=== PATIENT | female | born 2000 | race Caucasian/White ===

== ENCOUNTER → 2019-06-01 17:03 | Outpatient (CLI) | payer OTHER, MEDICAID, SELFPAY | PROVIDERS: Visit Provider Physician Assistant | DX: R10.11 Right upper quadrant pain (principal); R10.12 Left upper quadrant pain | CPT/HCPCS: 87086 ==

== ENCOUNTER → 2019-06-02 09:02 | Outpatient (CLI) | payer OTHER, MEDICAID, SELFPAY ==
[2019-06-02 09:37] LABS: Add Manual Diff / Slide Review NO; Basophils Absolute Auto 0 /uL (0-100); Basophils Percent Auto 0.3 % (0-2); Eosinophils Absolute Auto 100 /uL (0-450); Hemoglobin 13.8 g/dL (12.0-16.0); Lymphocytes Absolute Auto 2000 /uL (1100-4500); Lymphocytes Percent Auto 35.9 % (25-40); Mean Corpuscular HGB Conc 33.6 % (30-36); Mean Corpuscular Hemoglobin 29.5 PG (26-34); Monocytes Absolute Auto 400 /uL (0-900); Monocytes Percent Auto 6.8 % (3-14); Neutrophils Absolute Auto 3000 /uL (1500-7000); Platelet Count 219 X10^3/uL (150-400); Red Blood Cell Count 4.66 X10^6/uL (4.0-5.2); White Blood Cell Count 5.5 X10^3/uL (4.5-11.0)
[2019-06-02 10:50] LABS: Alanine Aminotransferase 25 IU/L (9-52); Albumin 4.5 g/dL (3.5-5.0); Albumin Globulin Ratio 1.6 (1.0-2.8); Alkaline Phosphatase 60 U/L (38-126); Aspartate Aminotransferase 30 IU/L (14-36); BUN Creatinine Ratio 12.2 (6-22); Bilirubin Total 1.6 mg/dL (0.2-1.3); Blood Urea Nitrogen 11 mg/dL (7-17); Calcium 10.7 mg/dL (8.4-10.2); Carbon Dioxide 27 mmol/L (22-32); Chloride 103 mmol/L (98-107); Estimated Glomerular Filt Rate > 60.0 mL/min (>60); Globulin 2.9 g/dL (1.7-4.1); Glucose 86 mg/dL (70-100); HEMOLYSIS < 15 (0-50); Lipase 74 U/L (23-300); Potassium 4.3 mmol/L (3.4-5.1); Sodium 139 mmol/L (137-145); Total Protein 7.4 g/dL (6.3-8.2)
== END ==
PROVIDERS: Visit Provider Physician Assistant
DX: R10.11 Right upper quadrant pain (principal)
CPT/HCPCS: 36415; 80053; 83690; 85025

== ENCOUNTER → 2020-05-27 13:51 | Outpatient (CLI) | payer OTHER, MEDICAID, SELFPAY ==
[2020-05-27 15:12] LABS: Alanine Aminotransferase 16 IU/L (<35); Albumin 4.6 g/dL (3.5-5.0); Albumin Globulin Ratio 1.4 (1.0-2.8); Alkaline Phosphatase 62 U/L (38-126); Aspartate Aminotransferase 28 IU/L (14-36); BUN Creatinine Ratio 14.9 (6-22); Bilirubin Total 1.3 mg/dL (0.2-1.3); Blood Urea Nitrogen 11 mg/dL (7-17); Calcium 9.9 mg/dL (8.4-10.2); Carbon Dioxide 24 mmol/L (22-32); Chloride 104 mmol/L (98-107); Estimated Glomerular Filt Rate > 60.0 mL/min (>60); Globulin 3.3 g/dL (1.7-4.1); Glucose 82 mg/dL (70-100); HEMOLYSIS < 15 (0-50); Potassium 3.9 mmol/L (3.4-5.1); Sodium 138 mmol/L (137-145); Total Protein 7.9 g/dL (6.3-8.2)
[2020-05-27 15:39] LABS: TSH w/ Reflex to FT4 3.08 uIU/mL (0.47-4.68)
== END ==
PROVIDERS: PCP Nurse Practitioner Family; Referring Provider Nurse Practitioner Family; Visit Provider Nurse Practitioner Family
DX: R17 Unspecified jaundice (principal); F41.9 Anxiety disorder, unspecified
CPT/HCPCS: 36415; 80053; 84443

== ENCOUNTER → 2020-10-22 09:23 | Outpatient (CLI) | payer OTHER, MEDICAID, SELFPAY | PROVIDERS: PCP Nurse Practitioner Family; Visit Provider Nurse Practitioner Family | DX: N89.8 Other specified noninflammatory disorders of vagina (principal) | CPT/HCPCS: 87077; 87086; 87210 ==

== ENCOUNTER → 2020-12-07 10:34 | Outpatient (CLI) | payer OTHER, MEDICAID, SELFPAY | PROVIDERS: PCP Nurse Practitioner Family; Visit Provider Physician Assistant | DX: N89.8 Other specified noninflammatory disorders of vagina (principal) | CPT/HCPCS: 87210 ==

== ENCOUNTER → 2020-12-08 10:19 | Outpatient (CLI) | payer OTHER, MEDICAID, SELFPAY ==
[2020-12-08] MEDS: COVID-19 VACC, Ad26(JANSSEN)/PF 0.5 ML IM (10:23)
== END ==
PROVIDERS: PCP Nurse Practitioner Family; Visit Provider Internal Medicine
DX: Z23 Encounter for immunization (principal)
CPT/HCPCS: 0031A; 91303

== ENCOUNTER → 2021-03-20 08:38 | Outpatient (CLI) | payer OTHER, MEDICAID, SELFPAY ==
[2021-03-20 14:09] LABS: Urine N gonorrhoeae NOT DETECTED
[2021-03-20 14:10] LABS: Urine Chlamydia NOT DETECTED
[2021-03-21 11:27] LABS: Candida species Negative (Negative); Gardnerella vaginalis Negative (Negative); Trichomoas vaginalis Negative (Negative)
== END ==
PROVIDERS: PCP Nurse Practitioner Family; Visit Provider Obstetrics & Gynecology
DX: N89.8 Other specified noninflammatory disorders of vagina (principal); Z11.3 Encounter for screening for infections with a predominantly sexual mode of transmission
CPT/HCPCS: 87480; 87491; 87510; 87591; 87660

== ENCOUNTER → 2023-04-16 08:52 | Outpatient (CLI) | payer OTHER, MEDICAID, SELFPAY ==
[2023-04-16 11:24] LABS: Urine N gonorrhoeae NOT DETECTED
[2023-04-16 11:28] LABS: Urine Chlamydia DETECTED
== END ==
PROVIDERS: PCP Registered Nurse Diabetes Educator; Visit Provider Student in an Organized Health Care Education/Training Program
DX: N39.0 Urinary tract infection, site not specified (principal); N89.8 Other specified noninflammatory disorders of vagina
CPT/HCPCS: 87086; 87210; 87491; 87591

== ENCOUNTER → 2023-04-16 09:15 | Outpatient (CLI) | payer OTHER, MEDICAID, SELFPAY ==
[2023-04-17 09:17] LABS: RPR Screen Non Reactive (Non Reactive)
== END ==
PROVIDERS: PCP Registered Nurse Diabetes Educator; Referring Provider Student in an Organized Health Care Education/Training Program; Visit Provider Student in an Organized Health Care Education/Training Program
DX: Z11.3 Encounter for screening for infections with a predominantly sexual mode of transmission (principal); N39.0 Urinary tract infection, site not specified; N89.8 Other specified noninflammatory disorders of vagina
CPT/HCPCS: 36415; 81002; 81025; 86592; 87086; 87210; 87491; 87591

== ENCOUNTER → 2023-05-15 10:05 | Outpatient (CLI) | payer OTHER, MEDICAID, SELFPAY ==
--- NOTE | 2023-05-15 10:07 | DI.RAD.S_ITS ---
PROCEDURE: XR KNEE RT 3V INDICATIONS: eval crhonic knee pain TECHNIQUE: 3 views of the knee were acquired. COMPARISON: None. FINDINGS: Bones: No acute fractures or dislocations. No suspicious bony lesions. Soft tissues: No joint effusion. No suspicious soft tissue calcifications. IMPRESSION: No acute osseous abnormality. If the symptoms persist, consider cross sectional imaging such as MRI or CT for further assessment. Approved by: Harvinder Galeas M.D. on 05/15/2023 at 18:26
--- NOTE | 2023-05-15 10:07 | DI.RAD.S_ITS ---
PROCEDURE: XR KNEE LT 3V INDICATIONS: eval crhonic knee pain TECHNIQUE: 3 views of the knee were acquired. COMPARISON: None. FINDINGS: Bones: No acute fractures or dislocations. No suspicious bony lesions. Soft tissues: No joint effusion. No suspicious soft tissue calcifications. IMPRESSION: No acute osseous abnormality. If the symptoms persist, consider cross sectional imaging such as MRI or CT for further assessment. Approved by: Harvinder Galeas M.D. on 05/15/2023 at 18:25
== END ==
PROVIDERS: PCP Registered Nurse Diabetes Educator; Referring Provider Registered Nurse Diabetes Educator; Visit Provider Registered Nurse Diabetes Educator
DX: M25.561 Pain in right knee (principal); M25.562 Pain in left knee
CPT/HCPCS: 73562

== ENCOUNTER → 2023-08-05 09:21 | Outpatient (CLI) | payer OTHER, MEDICAID, SELFPAY | PROVIDERS: PCP Registered Nurse Diabetes Educator; Visit Provider Registered Nurse Diabetes Educator | DX: R30.0 Dysuria (principal) | CPT/HCPCS: 81002; 87086 ==

== ENCOUNTER → 2023-11-12 15:42 | Outpatient (CLI) | payer OTHER, MEDICAID, SELFPAY ==
--- NOTE | 2023-11-12 15:44 | DI.US.S_ITS ---
PROCEDURE: US PELVIC COMPLETE INDICATIONS: PAIN; CYST ON PRIOR CT TECHNIQUE: Real-time scanning was performed of the pelvic organs, with image documentation. Additional endovaginal scanning was necessary due to incomplete visualization of the adnexal and endometrial structures by transabdominal scanning. COMPARISON: None. FINDINGS: Uterus: Uterus is anteverted and normal in size at 6.4 x 3.1 x 4.2 cm. The myometrium is homogeneous. The endometrium measures 9 mm combined thickness. Cervix and vagina are within normal limits. Ovaries: The right ovary measures 3.1 x 2.9 x 3.2 cm, with a calculated ovarian volume of 15.2 cc. The left ovary measures 1.8 x 2.7 x 1.3 cm, with a calculated ovarian volume of 3.2 cc. Less than 12 follicles can be seen in each ovary. Homogeneous isoechoic mass in the right ovary measuring 1.8 x 2 x 1.9 cm. Left ovary has a normal sonographic appearance. Other: No pathologic free abdominal or pelvic fluid. IMPRESSION: 1. Right ovarian isoechoic mass measuring 1.8 x 2 x 1.9 cm. Differential includes an endometrioma, hemorrhagic cyst or dermoid. Recommend repeat ultrasound in 6-8 weeks. 2. Uterus and left ovary are unremarkable. Dictated by: Stephany Hunt M.D. on 11/12/2023 at 17:04 Approved by: Stephany Hunt M.D. on 11/12/2023 at 17:08
== END ==
LOC: US 15:43
PROVIDERS: PCP Registered Nurse Diabetes Educator; Referring Provider Registered Nurse Diabetes Educator; Visit Provider Registered Nurse Diabetes Educator
DX: N94.6 Dysmenorrhea, unspecified (principal); N94.9 Unspecified condition associated with female genital organs and menstrual cycle
CPT/HCPCS: 76830; 76856; 93975

== ENCOUNTER 2024-07-13 09:02 | Day surgery (SDC) | payer OTHER, SELFPAY ==
[2024-07-08 14:59] VITALS: BMI 20.6
[2024-07-13] VITALS (10 sets, daily range): BP systolic 97–152; BP diastolic 49–93; PULSE 67–107; RESP 12–20; TEMP 36.4–37; O2SAT 99–100; BMI 20.2
--- NOTE | 2024-07-13 | PATH_ITS ---
[facility] Accession Number: [id number] No. of containers..01 Tissue . 01 Material submitted: . uterus - UTERUS AND BILATERAL TUBES . 01 Diagnosis: UTERUS AND BILATERAL TUBES, SUPRACERVICAL HYSTERECTOMY AND BILATERAL SALPINGECTOMY (WEIGHT 21 GRAMS): Proliferative endometrium; negative for significant atypia. Myometrium with no significant atypia. Uterine serosa with no significant atypia. Attached fallopian tube, complete cross sections; negative for significant atypia. Detached fallopian tube, complete cross sections; negative for significant atypia. [facility] 07/16/2024 1256 Local . 01 Electronically signed: . Lizeth Bowie MD, Pathologist NPI- [id number] . 01 Gross description: . Received in formalin with two patient identifiers and uterus, bilateral tubes, is a disrupted supracervical hysterectomy (21 grams, 3.4 cm superior to inferior, 4.4 cm medial to lateral, 2.9 cm anterior to posterior), attached fimbriated fallopian tube (6.4 x 0.6 cm), and detached fallopian tube with a blunt fimbriated end (3.4 x 0.6 cm), with no additional adnexa or cervix. . The serosa is will to violaceous with an area of pinpoint hemorrhage, 1.3 x 1.0 cm. The identifiable margins are inked blue. The portion of endometrial cavity is approximately 1.1 cm from cornu to cornu, and 1.2 cm in length. The endometrium is pink-will and velvety, and averages 0.1 cm thick. The myometrium is will and trabecular measuring up to 1.7 cm in maximum thickness with no nodules or lesions identified. . Both tubes have violaceous, smooth serosa with no cysts identified. Sectioning reveals unremarkable stellate lumen. Painting Worker sections are submitted as follows: . A1-A2: Full thickness endomyometrium. A3: Serosa with hemorrhagic areas. A4: Attached fallopian to include one-half of bisected fimbriae and cross sections. A5: Detached fallopian tube to include one-half of blunted fimbriated end and cross sections. ([id number]) /MRV 07/14/2024 1857 Local . 01 Pathologist provided ICD-10: N80.9, R10.2, N94.6 . 01 CPT . 326614 Specimen Comment: A courtesy copy of this report has been sent to [phone] Performed at: [address] [facility] [address], [place], [place] [id number] MD Guy Atwood MD Phone: [phone]
[2024-07-13] MEDS: ACETAMINOPHEN 325 MG TABLET 975 MG PO (09:47)
[2024-07-13] MEDS: SCOPOLAMINE 1 PATCH TOP (09:47)
[2024-07-13] MEDS: LACTATED RINGERS 1,000 ML 21 ML IV (09:47)
--- NOTE | 2024-07-13 10:04 | SUR.OPER ---
Lithotomy on padded OR bed. [place] Pad Positioner under torso. Head on pillow, arms padded and tucked at sides. Legs secured in padded yellow fins stirrups.
--- NOTE | 2024-07-13 10:18 | PM.PREOP ---
Pre-operative Note Interval Note History & Physical reviewed/Exam performed by Physician: Yes Changes to H&P: No H&P completed within 30 days and has changed as indicated here:: 07/08/24
[2024-07-13] MEDS: CEFAZOLIN 2 GM/100 ML PREMIX 100 ML IV (10:29)
[2024-07-13] MEDS: BUPIVACAINE 0.5% W/ EPI (PF) 30 ML VIAL INJ (10:45)
[2024-07-13] MEDS: ROPIVACAINE 0.2% PF 2 MG/ML 10ML AMP 20 ML INJ (10:50)
--- NOTE | 2024-07-13 11:50 | P.OP_ITS ---
Operative Date/Time/Diagnoses Date of procedure: 07/13/24 Time of procedure: 11:50 Pre-op diagnosis: Pelvic pain, suspect endometriosis Post-op diagnosis: same Procedure & Clinicians Procedure: Procedures Operation Date: 07/13/24 10:15 Actual Procedure Side Surgeon p Laparoscopic Supracervical Hysterectomy with bilateral salpingectomy with fulguration of endometriosis Isabel Lees MD Indications: 24-year-old 0 with persistent pelvic pain, relieved by Lupron. Suspect endometriosis Surgeon: Isabel Lees Stitching Machine Feeder Or Offbearer: Millicent Alvarado Anesthesia Type: General and Local Operative Notes Findings: 5 week size anteverted uterus Normal ovaries Right tube blunted at the fimbriated end Normal left tube Normal liver Endometriosis of the anterior cul-de-sac, left ovarian fossa, and left pelvic sidewalls Closure Type: primary Specimen(s): left tube, right tube and uterus Applied: catheter (Removed at the end of the case) Estimated blood loss (mL): 10 Blood products transfused: none Procedure in detail: The patient was taken to the operating room where she was placed in the dorsal supine position. After adequate general endotracheal anesthesia was achieved, she was placed in the dorsal lithotomy position, and prepped and draped in the usual sterile fashion. A time-out was performed. A bivalve speculum was placed into the vagina and the anterior lip of the cervix was grasped with a single- tooth tenaculum. The cervical os was sequentially dilated until the Zumi uterine manipulator could pass easily into the endometrial cavity. The single- tooth tenaculum was removed from the anterior lip of the cervix. The bivalve speculum was removed from the vagina. Attention was turned to the abdomen where 6 cc of 0.5% Marcaine with epinephrine were injected in the umbilical fold. A 5 mm vertical incision was made. The Veress needle was placed into the peritoneal cavity, and its placement confirmed by aspiration and drop test. The abdominal cavity was insufflated with 3 L of CO2. The Veress needle was removed, and the the 5 mm trocar was placed under direct visualization. Two other incisions were made lateral to the midline with care to avoid the blood vessels. 6 cc of 0.5% Marcaine with epinephrine were injected. 5 mm trocars were placed under direct visualization. The right tube was grasped with an atraumatic grasper. Using the power seal, the mesosalpinx was cauterized and cut all the way down to the fundus of the uterus. The fundus was grasped. The utero-ovarian vessels were cauterized and cut. The broad ligament and round ligament were cauterized and cut. The bladder flap was created using the power seal with cautery and cut fpc across. The uterine arteries on the right side were extensively cauterized with the power seal. All of this was repeated on the patient's left side. The Karina loop was placed. The Zumi uterine manipulator was removed from the uterus and a moistened sponge stick placed in the vagina. The uterus was amputated from the cervix 2 cm above the uterosacral ligaments. There was a small amount of bleeding noted and this was cauterized with the spatula cautery as was the endocervical canal. 6 cc of 0.5% Marcaine with epinephrine were injected through the previous Pfannenstiel incision in the midline just above the pubic symphysis. A 2 cm incision was made. A 12 mm trocar was placed under direct visualization. The endobag was placed through the suprapubic trocar and opened. The uterus and tubes were placed into the bag. The trocar was removed. The edges of the bag were brought up through the skin. The fascial incision was extended bilaterally with the Shah scissors. The uterus was grasped with a Sharon. The Doc was placed into the bag. The uterus and tubes were morcellated in approximately 1 piece. The Doc and endobag were removed from the abdomen. The fascial incision was closed with 0 Vicryl in a running fashion. Two simple interrupted sutures were placed in the subcutaneous layer for reapproximation. The abdomen was re-insufflated. The pelvis was examined. There was no bleeding noted. 20 cc of 0.2% ropivacaine were placed over the pelvic pedicles. The instruments were removed from the abdomen. The CO2 was allowed to escape. All of the incisions were closed with 4-0 Monocryl in a subcuticular fashion. Steri-Strips and Allevyn dressings were placed. The moistened sponge stick was removed from the vagina. Sponge, lap, and instrument counts were correct x2. The patient tolerated the procedure well, and was taken to PACU in stable condition. Complications: none Post-operative Condition: stable Disposition: PACU Plan for aftercare: Home after recovery
[2024-07-13] MEDS: OXYCODONE IR 5 MG TABLET PO (12:15)
[2024-07-13] MEDS: BENZOCAINE/MENTHOL 1 LOZ PKT 1 EACH PO (13:44)
--- NOTE | 2024-07-13 15:17 | SUR.PHASEII ---
Patient ambulated to the bathroom, SBA and was able to void 100mls of pink/yellow urine. Bladder scan done around the lower abdomen dressing, 0mls shown. Dr. Lees updated and discharge orders were placed. Patient was assisted to dress and transferred to the wheelchair. After sitting for a few minutes, she complained of feeling light headed and vomited. BP 91/56. Patient was able to transfer back to bed and was provided a queasease and soda. She sipped on the soda and felt better quickly. BP increased to 118/78. She expressed the desire to discharge and was transferred out in a wheelchair.
== END 2024-07-13 15:01 | disposition home or self-care (01) ==
LOC: OR 09:03 → AC 09:03
PROVIDERS: PCP Registered Nurse Diabetes Educator; Referring Provider Obstetrics & Gynecology; Visit Provider Obstetrics & Gynecology
PROC: 0UT94ZL Resection of Uterus, Supracervical, Percutaneous Endoscopic Approach (ICD-10-PCS; CPT 58542; principal; 2024-07-13 10:15)
DX: N80.352 Endometriosis of the left pelvic sidewall, unspecified depth (principal); N80.102 Endometriosis of left ovary, unspecified depth; N80.319 Endometriosis of the anterior cul-de-sac, unspecified depth
CPT/HCPCS: 58542; 58662; J0330; J0690; J1100; J1885; J2250; J2405; J2704; J2795; J3010; J3490